=== PATIENT | female | born 1945 | race Caucasian/White ===

== ENCOUNTER 2017-05-23 13:00 | Emergency (ER) | payer MEDICARE ==
[2017-05-23 13:19] VITALS: O2SAT 96
--- NOTE | 2017-05-23 13:45 | ED PDOC ---
HPI: Trauma/Fall - HPI Time Seen by Provider: 05/23/17 13:21 Chief Complaint (Nursing): Trauma Chief Complaint (Provider): Left Shoulder and Clavicular Pain History Per: Patient History/Exam Limitations: no limitations Onset/Duration Of Symptoms: Other (prior to arrival) Injury Occurred (Timing): Just Before Arrival Additional Complaint(s): 71 year old female with a past medical history of osteoporosis HTN, and hernia repair, who presents to the ED complaining of left shoulder and clavicular pain s/p fall prior to arrival. Patient states she fell from a step stool while working in her home. States it was a 2 step ladder and she fell from the 2nd step approximately 3.5 feet. Denies head injury or LOC. Confirms pain when moving left arm. Also complaining of pain in her tailbone. Denies weakness, numbness, syncope, dizziness. PMD: Dr. Serna Past Medical History Reviewed: Historical Data, Nursing Documentation, Vital Signs Vital Signs: Last Vital Signs Temp 98.2 F 05/23/17 17:36 Pulse 70 05/23/17 17:36 Resp 16 05/23/17 17:36 BP 116/71 05/23/17 17:36 Pulse Ox 96 05/23/17 20:00 - Medical History PMH: Anxiety, Arthritis, Asthma (WHEN SEASONS CHANGE), HTN, Hypothyroidism, Osteoporosis Denies: Chronic Kidney Disease - Surgical History Surgical History: Endoscopy, Hernia Repair - Family History Family History: States: Unknown Family Hx - Home Medications Home Medications: Ambulatory Orders Medication Instructions Recorded Alprazolam [Xanax] 0.5 mg PO DAILY PRN 03/25/16 Docusate [Colace] 100 mg PO BID PRN #20 cap 03/25/16 Ergocalciferol (Vitamin D2) 50,000 unit PO SAT 03/25/16 [Vitamin D2] Levothyroxine [Synthroid] 100 mg PO DAILY 03/25/16 Lisinopril/Hydrochlorothiazide 1 tab PO DAILY 03/25/16 [Lisinopril-Hctz 20-12.5 mg Tab] Omeprazole 20 mg PO BID 03/30/17 traMADol [Ultram] 50 mg PO DAILY 03/30/17 Ibuprofen [Motrin Tab] 600 mg PO Q8 PRN #30 tab 05/23/17 Lidocaine 5% [Lidoderm] 1 ea TD DAILY PRN #30 patch 05/23/17 traMADol [Ultram] 50 mg PO TID PRN #15 tab 05/23/17 - Allergies Allergies/Adverse Reactions: Allergies Allergy/AdvReac Type Severity Reaction Status Date / Time Shrimps Allergy RASH Uncoded 05/23/17 13:29 Review of Systems ROS Statement: Except As Marked, All Systems Reviewed And Found Negative Musculoskeletal: Positive for: Shoulder Pain, Back Pain (tailbone), Other (left clavicle) Neurological: Negative for: Weakness, Numbness, Headache, Dizziness Physical Exam - Reviewed Nursing Documentation Reviewed: Yes Vital Signs Reviewed: Yes - Physical Exam Appears: Positive for: Non-toxic, No Acute Distress Head Exam: Positive for: ATRAUMATIC, NORMAL INSPECTION, NORMOCEPHALIC Skin: Positive for: Normal Color, Warm, Dry. Negative for: Rash Eye Exam: Positive for: EOMI, Normal appearance, PERRL Neck: Positive for: Normal, Painless ROM, Supple Cardiovascular/Chest: Positive for: Regular Rate, Rhythm. Negative for: Murmur Respiratory: Positive for: Normal Breath Sounds. Negative for: Respiratory Distress Gastrointestinal/Abdominal: Positive for: Normal Exam, Bowel Sounds, Soft. Negative for: Tenderness Back: Positive for: Normal Inspection. Negative for: L CVA Tenderness, R CVA Tenderness, Vertebral Tenderness Extremity: Positive for: Other (swelling, tenderness, and deformity of the medial end of left clavicle). Negative for: Normal ROM (painful ROM of left shoulder), Tenderness (left shoulder), Swelling (left shoulder) Neurologic/Psych: Positive for: Alert, Oriented (x3). Negative for: Motor/ Sensory Deficits - Laboratory Results Result Diagrams: 05/23/17 16:05 05/23/17 16:05 - ECG O2 Sat by Pulse Oximetry: 96 (RA) Pulse Ox Interpretation: Normal Medical Decision Making Medical Decision Making: Time: 13:32 Initial Impression: Left clavicle injury with possible fracture, left shoulder injury r/o fracture or dislocation, and lower back injury. Initial Plan: --Ultram 50 mg PO --X-Ray Left Clavicle --X-Ray Sacrum &/or Coccyx --X-Ray Left Shoulder --Reevaluation Time: 15:05 Reviewed X-Rays which showed a non-displaced fracture of the medial left clavicle? Suspect sternoclavicular dislocation. CT chest ordered. X-ray sacrum no acute findings. X-ray left shoulder no acute findings. Time: 17:00 Patient will be signed out to Dr. Bear pending CT. Scribe Attestation: Documented by Andrew Gipson, acting as a scribe for Chris Caceres MD. Provider Scribe Attestation: All medical record entries made by the Scribe were at my direction and personally dictated by me. I have reviewed the chart and agree that the record accurately reflects my personal performance of the history, physical exam, medical decision making, and the department course for this patient. I have also personally directed, reviewed, and agree with the discharge instructions and disposition. Disposition - Clinical Impression Clinical Impression: Clavicle fracture - Patient ED Disposition Is Patient to be Admitted: Transfer of Care Counseled Patient/Family Regarding: Studies Performed, Diagnosis - Disposition Disposition: Transfer of Care Disposition Time: 17:00 Condition: IMPROVED Additional Instructions: PLEASE FOLLOW UP WITH YOUR DOCTOR FOR REEVALUATION OF YOUR PAIN IN 1-2 DAYS -FOLLOW UP WITH ORTHOPEDIST IN 1-2 WEEKS FOR CLAVICLE (COLLARBONE) FRACTURE -YOU MAY NEED A REPEAT CT CHEST IN A YEAR FOR LUNG NODULE -YOU NEED TO GET YOUR MAMMOGRAM RESCHEDULED AFTER YOUR COLLARBONE HEALS Prescriptions: Ibuprofen [Motrin Tab] 600 mg PO Q8 PRN #30 tab PRN Reason: Pain, Moderate (4-7) Lidocaine 5% [Lidoderm] 1 ea TD DAILY PRN #30 patch PRN Reason: PAIN traMADol [Ultram] 50 mg PO TID PRN #15 tab PRN Reason: SEVERE PAIN ONLY Instructions: Clavicle Fracture Forms: [employer] ([place] Citizen) Patient Signed Over To: Radha Bear Handoff Comments: pending CT
[2017-05-23] MEDS ORDERED: Morphine 4 MG/ML VIAL IVP ONE (15:46)
--- NOTE | 2017-05-23 15:46 | RAD ---
HISTORY: COMPARISON: 05/23/2012. TECHNIQUE: Chest PA and lateral FINDINGS: LINES AND TUBES: None. LUNG AND PLEURA: The lungs are well inflated and clear. HEART AND MEDIASTINUM: The heart is not enlarged. The hilar and mediastinal contours are within normal limits. SKELETAL STRUCTURES: The bony structures are within normal limits for the patient's age. VISUALIZED UPPER ABDOMEN: Normal. OTHER FINDINGS: There is a large retrocardiac opacity with fluid level. IMPRESSION: No active pulmonary disease. Large hiatal hernia.
--- NOTE | 2017-05-23 15:58 | RAD ---
PROCEDURE: Radiographs of the Left Shoulder HISTORY: left shoulder pain injury COMPARISON: No prior. FINDINGS: BONES: There is diffuse bone demineralization. There is no acute displaced fracture or bone destruction. Bone alignment is normal. JOINTS: There is mild degenerative osteoarthrosis in the acromioclavicular joint. The glenohumeral joint is normal. SOFT TISSUES: There are lobular calcifications lateral to the humeral head which may represent calcific tendinitis in the appropriate clinical setting. . OTHER FINDINGS: None. IMPRESSION: No acute fracture or dislocation.
[2017-05-23] MEDS ORDERED: Morphine 4 MG/ML VIAL ONE (16:11)
--- NOTE | 2017-05-23 16:12 | RAD ---
PROCEDURE: Radiographs of the left clavicle. HISTORY: left clavicle pain injury fall COMPARISON: None. FINDINGS: LEFT CLAVICLE: There is no acute displaced fracture or bone destruction. Bone alignment is normal. JOINTS: There is mild degenerative osteoarthrosis in the acromioclavicular joint. The glenohumeral joint is normal. SOFT TISSUES: There are lobular calcifications lateral to the humeral head which may represent calcific tendinitis in the appropriate clinical setting. OTHER FINDINGS: None. IMPRESSION: No acute fracture or dislocation.
--- NOTE | 2017-05-23 16:13 | RAD ---
PROCEDURE: Radiographs of the Sacrum and Coccyx HISTORY: sacral pain injury fall COMPARISON: None available. TECHNIQUE: Frontal and lateral views of the sacrum and coccyx FINDINGS: BONES: There is diffuse bone demineralization. There is no acute fracture. The sacrococcygeal angulation is normal. SACROILIAC JOINTS: There is mild degenerative osteoarthrosis in the sacroiliac joints. OTHER FINDINGS: None. IMPRESSION: No acute displaced fracture or dislocation.Please note occult fractures cannot be excluded on plain radiographs. If there is a persistent clinical concern, an MRI without contrast may be performed for further evaluation.
[2017-05-23 16:33] LABS: HEMOGLOBIN 11.7 g/dL (12.0-16.0); MEAN CELL VOLUME 94.2 fl (81.0-99.0); MEAN CORPUSCULAR HEMOGLOBIN 31.1 pg (27.0-31.0); RBC 3.77 Mil/uL (3.80-5.20); RED CELL DISTRIBUTION WIDTH 14.8 % (11.5-14.5); WHITE BLOOD COUNT 12.4 K/uL (4.8-10.8)
[2017-05-23 16:43] LABS: BLOOD UREA NITROGEN 25 mg/dl (7-17); CALCIUM 9.1 mg/dL (8.4-10.2); GFR AFRICAN-AMERICAN > 60; GFR NON-AFRICAN AMERICAN > 60
--- NOTE | 2017-05-23 17:15 | ED PDOC ---
- Laboratory Results Result Diagrams: 05/23/17 16:05 05/23/17 16:05 - ECG O2 Sat by Pulse Oximetry: 96 (RA) Pulse Ox Interpretation: Normal Medical Decision Making Medical Decision Making: Time:17:12 Patient with a traumatic shoulder pain was signed out to me by Dr. Caceres pending CT scan and final disposition Time:17:25 CT Chest without contrast FINDINGS: LUNGS: No infiltrate is identified bilaterally. No right-sided nodule or mass is identified. Trace fibrotic changes seen related the superior segment of the left lower lobe with a 3.0 mm nodule questioned in image 55 series 3 at the same segment. 3.5 mm faint nodule is noncalcified abutting 80 pulmonary vessel of the superior segment left lower lobe as well, image 57. Central airways appear clear. MEDIASTINUM: The thoracic inlet is remarkable for a fracture through the proximal clavicle which is nondisplaced with local edema extending into the distal sternocleidomastoid muscle. There is no pleural or pericardial effusion identified with cardiac size borderline enlarged. Dense mitral annular calcifications are identified as well as coronary artery calcifications. There is no evidence of a thoracic aortic aneurysm with the main pulmonary artery appearing normal caliber. There is no definite significant lymphadenopathy. The lack of intravenous contrast limits evaluation of the mediastinum. A moderately large hiatal hernia is reiterated as compared to the earlier chest radiograph performed today. The majority of the stomach appears to be involved in this hernia. PLEURA: No pleural fluid. No pneumothorax. BONES: Left clavicle fractures noted as discussed above. Multiple thoracic compression fracture identified appearing moderate to severe at T7, severe at T8, mild at T11 and moderate to severe at T12 and incidental severe compression fracture of L1 is identified versus gross Schmorl nodes superiorly and inferiorly involving L1. A mild L2 compression fracture is questioned as well. A mild to moderate levoscoliotic inferior thoracolumbar spinal are identified. UPPER ABDOMEN: Grossly unremarkable. OTHER FINDINGS: 1.3 cm nodular density is questioned related to the the left breast incidentally. IMPRESSION: 1. No pneumothorax, pleural or pericardial effusion. 1 are 2 tiny nodules in the superior segment left lower lobe with associated fibrosis in the superior subsegment for which follow-up chest is advised in 1 year. No infiltrate bilaterally. 2. An oblique fracture through the medial left clavicle is identified with local edema extending into the sternocleidomastoid muscle inferior segment. There multiple mid to inferior thoracic and upper lumbar vertebral body fractures appreciated of indeterminate age including T7, T8, T11 and T12 and possibly L1 and L2 although prominent Schmorl's nodes are also due identified at L1. Further clinical correlation is advised. 3. A small nodule is questioned at the left breast for which follow-up mammogram is advised one an feasible, potentially as an outpatient. Time: 17:29 Discusses with patient and family friends at bedside about plan of care: sling, pain medication, ice, and rest Clinical Impression: Clavicle fracture Upon provider evaluation patient is medically stable, and requires no further treatment in the ED at this time. Patient will be discharged with Motrin 600mg, Lidoderm, and Ultran 50mg for Clavicle fracture. Counseling was provided and all questions were answered regarding diagnosis and need for follow up with PMD. There is agreement to discharge plan. Return if symptoms persist or worsen. --- Documented by Quyen Cesar acting as a scribe for Radha Bear MD. All medical record entries made by the Scribe were at my direction and personally dictated by me. I have reviewed the chart and agree that the record accurately reflects my personal performance of the history, physical exam, medical decision making, and the department course for this patient. I have also personally directed, reviewed, and agree with the discharge instructions and disposition. Disposition - Clinical Impression Clinical Impression: Clavicle fracture - POA Present On Arrival: None - Disposition Disposition: Routine/Home Disposition Time: 17:30 Condition: IMPROVED Additional Instructions: PLEASE FOLLOW UP WITH YOUR DOCTOR FOR REEVALUATION OF YOUR PAIN IN 1-2 DAYS -FOLLOW UP WITH ORTHOPEDIST IN 1-2 WEEKS FOR CLAVICLE (COLLARBONE) FRACTURE -YOU MAY NEED A REPEAT CT CHEST IN A YEAR FOR LUNG NODULE -YOU NEED TO GET YOUR MAMMOGRAM RESCHEDULED AFTER YOUR COLLARBONE HEALS Prescriptions: Ibuprofen [Motrin Tab] 600 mg PO Q8 PRN #30 tab PRN Reason: Pain, Moderate (4-7) Lidocaine 5% [Lidoderm] 1 ea TD DAILY PRN #30 patch PRN Reason: PAIN traMADol [Ultram] 50 mg PO TID PRN #15 tab PRN Reason: SEVERE PAIN ONLY Instructions: Clavicle Fracture Forms: [employer] ([place])
--- NOTE | 2017-05-23 17:19 | CT ---
PROCEDURE: CT Chest without contrast HISTORY: sternal pain. left clavicle fracture COMPARISON: Chest radiographs 05/23/2017. No prior CT available for comparison. TECHNIQUE: Contiguous axial images were obtained through the chest without intravenous contrast enhancement. Sagittal and coronal reconstructions were performed. Radiation dose (DLP): 439.23 mGy-cm. This CT exam was performed using one or more of the following dose reduction techniques: Automated exposure control, adjustment of the mA and/or kV according to patient size, and/or use of iterative reconstruction technique. FINDINGS: LUNGS: No infiltrate is identified bilaterally. No right-sided nodule or mass is identified. Trace fibrotic changes seen related the superior segment of the left lower lobe with a 3.0 mm nodule questioned in image 55 series 3 at the same segment. 3.5 mm faint nodule is noncalcified abutting 80 pulmonary vessel of the superior segment left lower lobe as well, image 57. Central airways appear clear. MEDIASTINUM: The thoracic inlet is remarkable for a fracture through the proximal clavicle which is nondisplaced with local edema extending into the distal sternocleidomastoid muscle. There is no pleural or pericardial effusion identified with cardiac size borderline enlarged. Dense mitral annular calcifications are identified as well as coronary artery calcifications. There is no evidence of a thoracic aortic aneurysm with the main pulmonary artery appearing normal caliber. There is no definite significant lymphadenopathy. The lack of intravenous contrast limits evaluation of the mediastinum. A moderately large hiatal hernia is reiterated as compared to the earlier chest radiograph performed today. The majority of the stomach appears to be involved in this hernia. PLEURA: No pleural fluid. No pneumothorax. BONES: Left clavicle fractures noted as discussed above. Multiple thoracic compression fracture identified appearing moderate to severe at T7, severe at T8, mild at T11 and moderate to severe at T12 and incidental severe compression fracture of L1 is identified versus gross Schmorl nodes superiorly and inferiorly involving L1. A mild L2 compression fracture is questioned as well. A mild to moderate levoscoliotic inferior thoracolumbar spinal are identified. UPPER ABDOMEN: Grossly unremarkable. OTHER FINDINGS: 1.3 cm nodular density is questioned related to the the left breast incidentally. IMPRESSION: 1. No pneumothorax, pleural or pericardial effusion. 1 are 2 tiny nodules in the superior segment left lower lobe with associated fibrosis in the superior subsegment for which follow-up chest is advised in 1 year. No infiltrate bilaterally. 2. An oblique fracture through the medial left clavicle is identified with local edema extending into the sternocleidomastoid muscle inferior segment. There multiple mid to inferior thoracic and upper lumbar vertebral body fractures appreciated of indeterminate age including T7, T8, T11 and T12 and possibly L1 and L2 although prominent Schmorl's nodes are also due identified at L1. Further clinical correlation is advised. 3. A small nodule is questioned at the left breast for which follow-up mammogram is advised one an feasible, potentially as an outpatient.
[2017-05-23 17:38] VITALS: BP 116/71; PULSE 70; RESP 16; TEMP 98.2
== END 2017-05-23 17:45 | disposition home or self-care (01) ==
LOC: H.ER 13:00
DX: S42.002A Fracture of unspecified part of left clavicle, initial encounter for closed fracture (principal); W11.XXXA Fall on and from ladder, initial encounter; Y92.89 Other specified places as the place of occurrence of the external cause; N63.20 Unspecified lump in the left breast, unspecified quadrant; E03.9 Hypothyroidism, unspecified; F41.9 Anxiety disorder, unspecified; I10 Essential (primary) hypertension
CPT/HCPCS: 71046; 71250; 72220; 73000; 73030; 80048; 85027; 85610; 85730; 86850; 86900; 96374; 99285; J2270

== ENCOUNTER 2018-03-10 10:28 | Emergency (ER) | payer MEDICARE ==
[2018-03-10 10:31] VITALS: BMI 24.7
[2018-03-10] MEDS ORDERED: Naproxen 500 MG TAB PO STA (11:24)
[2018-03-10] MEDS ORDERED: Naproxen 500 MG TAB PO ONE (11:36)
--- NOTE | 2018-03-10 11:37 | ED PDOC ---
HPI: Back Time Seen by Provider: 03/10/18 11:14 Chief Complaint (Nursing): Back Pain Chief Complaint (Provider): Back Pain History Per: Patient History/Exam Limitations: no limitations Onset/Duration Of Symptoms: Days Current Symptoms Are (Timing): Still Present Quality Of Discomfort: "Pain" Exacerbating Factor(s): Movement Additional Complaint(s): 72 year old female presents to the ED for an evaluation of upper back pain onset for 1 week. Patient states on Tuesday the pain was on the left side and the pain has shifted to the right side. She does a lot of lifting at home. She did not take any medication prior to arrival. Denies fall, fever, numbness, incontinence, cough, vomiting, nausea, diarrhea, shortness of breath or any urinary symptoms. PMD: Bill Serna Past Medical History Reviewed: Historical Data, Nursing Documentation, Vital Signs Vital Signs: Last Vital Signs Temp 97.4 F L 03/10/18 10:31 Pulse 77 03/10/18 10:31 Resp 20 03/10/18 10:31 BP 132/73 03/10/18 10:31 Pulse Ox 97 03/10/18 10:31 - Medical History PMH: Anxiety, Arthritis, Asthma (WHEN SEASONS CHANGE), HTN, Hypothyroidism, Osteoporosis Denies: Chronic Kidney Disease - Surgical History Surgical History: Endoscopy, Hernia Repair - Family History Family History: States: Unknown Family Hx - Social History Current smoker - smoking cessation education provided: No Alcohol: None Drugs: Denies - Immunization History Hx Tetanus Toxoid Vaccination: No Hx Influenza Vaccination: No Hx Pneumococcal Vaccination: No - Home Medications Home Medications: Ambulatory Orders Medication Instructions Recorded Alprazolam [Xanax] 0.5 mg PO DAILY PRN 03/25/16 Docusate [Colace] 100 mg PO BID PRN #20 cap 03/25/16 Ergocalciferol (Vitamin D2) 50,000 unit PO SAT 03/25/16 [Vitamin D2] Levothyroxine [Synthroid] 100 mg PO DAILY 03/25/16 Lisinopril/Hydrochlorothiazide 1 tab PO DAILY 03/25/16 [Lisinopril-Hctz 20-12.5 mg Tab] Omeprazole 20 mg PO BID 03/30/17 traMADol [Ultram] 50 mg PO DAILY 03/30/17 Ibuprofen [Motrin Tab] 600 mg PO Q8 PRN #30 tab 05/23/17 Lidocaine 5% [Lidoderm] 1 ea TD DAILY PRN #30 patch 05/23/17 traMADol [Ultram] 50 mg PO TID PRN #15 tab 05/23/17 Naproxen [Naprosyn] 500 mg PO BID PRN #20 tablet 03/10/18 - Allergies Allergies/Adverse Reactions: Allergies Allergy/AdvReac Type Severity Reaction Status Date / Time No Known Allergies Allergy Verified 03/10/18 11:11 Review of Systems ROS Statement: Except As Marked, All Systems Reviewed And Found Negative Constitutional: Negative for: Fever, Chills Respiratory: Negative for: Cough Gastrointestinal: Negative for: Nausea, Vomiting, Abdominal Pain, Diarrhea Genitourinary Female: Negative for: Dysuria, Frequency, Incontinence Musculoskeletal: Positive for: Back Pain Physical Exam - Reviewed Nursing Documentation Reviewed: Yes Vital Signs Reviewed: Yes - Physical Exam Appears: Positive for: Well, Non-toxic, No Acute Distress Head Exam: Positive for: ATRAUMATIC, NORMAL INSPECTION, NORMOCEPHALIC Skin: Positive for: Normal Color, Warm, Dry. Negative for: Rash Eye Exam: Positive for: EOMI, Normal appearance, PERRL ENT: Positive for: Normal ENT Inspection Neck: Positive for: Normal, Painless ROM, Supple. Negative for: Decreased ROM Cardiovascular/Chest: Positive for: Regular Rate, Rhythm. Negative for: Murmur Respiratory: Positive for: Normal Breath Sounds. Negative for: Decreased Breath Sounds, Wheezing, Respiratory Distress Gastrointestinal/Abdominal: Positive for: Normal Exam, Soft. Negative for: Tenderness, Guarding, Rebound Back: Positive for: Decreased ROM, Other (left midback tenderness, mild tenderness upon palpation on right midback and lateral twist). Negative for: Normal Inspection Extremity: Positive for: Normal ROM. Negative for: Tenderness, Pedal Edema, Deformity Neurologic/Psych: Positive for: Alert, Oriented (x3). Negative for: Motor/Sensory Deficits - ECG O2 Sat by Pulse Oximetry: 97 (RA) Pulse Ox Interpretation: Normal Medical Decision Making Medical Decision Making: Time: 1123 Initial Plan: Chest Two Views [RAD] Naproxen 500mg Reevaluation ----- Scribe Attestation: Documented by Quyen Cesar, acting as a scribe for Caron Cage MD. Provider Scribe Attestation: All medical record entries made by the Scribe were at my direction and personally dictated by me. I have reviewed the chart and agree that the record accurately reflects my personal performance of the history, physical exam, medical decision making, and the department course for this patient. I have also personally directed, reviewed, and agree with the discharge instructions and disposition. Disposition - Clinical Impression Clinical Impression: Upper back strain, Hiatal hernia - Disposition Referrals: Bill Serna MD [Family Provider] - Disposition Time: 12:20 Condition: IMPROVED Prescriptions: Naproxen [Naprosyn] 500 mg PO BID PRN #20 tablet PRN Reason: Pain, Moderate (4-7) Instructions: Muscle Strain, Hiatal Hernia (DC) Forms: [email or web address] ([place]ic) Print Language: [place] CITIZEN
--- NOTE | 2018-03-10 12:29 | RAD ---
Date of service: 03/10/2018 HISTORY: right mid upper back pain COMPARISON: 05/23/2017 TECHNIQUE: Chest PA and lateral FINDINGS: LUNGS: No active pulmonary disease. PLEURA: No significant pleural effusion identified. No pneumothorax apparent. CARDIOVASCULAR: Atherosclerotic calcifications identified primarily aortic arch. Normal cardiac size. No pulmonary vascular congestion. OSSEOUS STRUCTURES: No significant abnormalities. VISUALIZED UPPER ABDOMEN: Normal. OTHER FINDINGS: Large hiatal hernia IMPRESSION: No active disease. No significant interval change compared to the prior examination(s).
[2018-03-10 13:06] VITALS: BP 103/52; PULSE 61; RESP 16; TEMP 97.7; O2SAT 99
== END 2018-03-10 13:19 | disposition home or self-care (01) ==
LOC: H.ER 10:28
DX: K44.9 Diaphragmatic hernia without obstruction or gangrene (principal); M54.9 Dorsalgia, unspecified